=== PATIENT | male | born 1990 | race Two or more races ===

== ENCOUNTER 2017-05-02 05:17 | Emergency (ER) | payer MEDICAID ==
[~2017-05-02] VITALS: Ht 172.7 cm; Wt 86.2 kg
[2017-05-02 05:38] VITALS: BP 104/68
== END 2017-05-02 07:24 | disposition left against medical advice (07) ==
LOC: ER 05:24
DX: J45.909 Unspecified asthma, uncomplicated (principal); Z76.0 Encounter for issue of repeat prescription; Z53.21 Procedure and treatment not carried out due to patient leaving prior to being seen by health care provider

== ENCOUNTER 2022-10-31 09:32 | Emergency (ER) | payer SELFPAY ==
[~2022-10-31] VITALS: Ht 172.7 cm; Wt 90.9 kg
[2022-10-31 10:09] VITALS: BP 122/75
[2022-10-31] MEDS ORDERED: ACETAMINOPHEN 500 MG TAB PO ONE (10:30)
[2022-10-31] MEDS ORDERED: cefTRIAXone SOD 1,000 MG VL IM ONE (10:30)
[2022-10-31] MEDS ORDERED: AZIT500T66 PO (11:04)
[2022-10-31] MEDS ORDERED: IBUP800T27 PO (11:04)
== END 2022-10-31 11:17 | disposition home or self-care (01) ==
LOC: ER 09:32
DX: J03.90 Acute tonsillitis, unspecified (principal); I88.9 Nonspecific lymphadenitis, unspecified; F12.10 Cannabis abuse, uncomplicated
CPT/HCPCS: 71045; 96372; 99283; J0696